=== PATIENT | male | born 1985 | race Caucasian/White ===

== ENCOUNTER 2017-02-16 15:06 | Emergency (ER) | payer OTHER, MEDICARE ==
[~2017-02-16] VITALS: Ht 177.8 cm; Wt 104.3 kg
[~2017-02-16 15:06] MED LIST: BENTYL20 MG PO; DIVALPROEX SOD250 M1 PO; PEPCID20 MG PO
[2017-02-16 15:31] LABS: ABSOLUTE BASOPHIL COUNT 0 /CUMM (0.0-0.2); ABSOLUTE EOSINOPHIL COUNT 0.3 /CUMM (0.0-0.7); ABSOLUTE GRANULOCYTE CT 8.4 /CUMM (1.4-6.5); ABSOLUTE LYMPH COUNT 1.6 /CUMM (1.2-3.4); BASOPHIL % 0.3 % (0.0-2.0); EOSINOPHIL % 2.3 % (0-5); HEMATOCRIT 47.8 % (42-52); MEAN CORPUSCULAR HGB 30.3 PG (27.0-31.0); MEAN CORPUSCULAR HGB CONC 33.5 G/DL (33.0-37.0); MEAN CORPUSCULAR VOLUME 90.3 FL (80.0-94.0); MEAN PLATELET VOLUME 8.6 FL (7.4-10.4); PLATELET COUNT 319 /CUMM (130-400); RBC DISTRIBUTION WIDTH 13.2 % (11.5-14.5); WHITE BLOOD CELL COUNT 11.3 /CUMM (4.8-10.8)
--- NOTE | 2017-02-16 16:13 | ED GI/GU/ABDOMINAL COMPLAINT ---
History of Present Illness General Chief Complaint: Abdominal Pain/Flank Pain Stated Complaint: SENT BY PMD FOR LFT SIDED FLANK PAIN Source: patient Exam Limitations: no limitations Vital Signs & Intake/Output Vital Signs & Intake/Output Vital Signs Date Time Temp Pulse Resp B/P B/P Pulse O2 O2 Flow FiO2 Mean Ox Delivery Rate 02/16 1806 87 20 116/66 99 02/16 1509 97.9 83 16 123/83 98 Room Air Allergies Coded Allergies: levetiracetam (From KEPPRA) (RASH 02/16/17) phenytoin (From DILANTIN) (RASH 02/16/17) Reconcile Medications Ketorolac Tromethamine 10 MG TABLET 1 TAB PO TID PRN PAIN RECEIVED IM IN ER Lamotrigine (Lamotrigine ER) 300 MG TAB.ER.24 1 TAB PO BID SEIZURES (Reported ) Triage Note: PT WITH LEFT SIDED FLANK PAIN THAT STARTED 2 DAYS AGO. PT DENIES BLOOD IN HIS URINE STATES "I DIDN'T NOTICE". PT WITH NO HX OF KIDNEY STONES. Triage Nurses Notes Reviewed? yes Onset: Abrupt Duration: getting worse, intermittent Timing: recent history Quality/Severity: sharpness, severe, stabbing, throbbing Severity Numbers: 7 HPI: Patient is a 31-year-old male who presents to emergency room with concerns of a 3 day history of initially beginning of left back and flank pain with radiation to left groin however in the past 24 hours the symptoms have been persistent. Patient has tried aspirin without relief of symptoms. Last bowel movement was within the last 24 hours no blood no melena noted. Denies any fevers chills nausea vomiting dysuria hematuria. Patient is able tolerate by mouth. (LOBO HAMILTON) Past History Travel History Traveled to [place] past 21 day No Medical History Any Pertinent Medical History? see below for history Neurological: seizure Surgical History Surgical History: non-contributory Psychosocial History What is your primary language Lao Tobacco Use: Current Not Daily Daily Tobacco Use Amount/Type: =< 4 Cigarettes daily ETOH Use: denies use Illicit Drug Use: denies illicit drug use Family History Hx Contributory? No (LOBO HAMILTON) Review of Systems Review of Systems Constitutional: Reports: no symptoms. EENTM: Reports: no symptoms. Respiratory: Reports: no symptoms. Cardiovascular: Reports: no symptoms. GI: Reports: see HPI, abdominal pain. Genitourinary: Reports: see HPI. Musculoskeletal: Reports: see HPI, back pain. Skin: Reports: no symptoms. Neurological/Psychological: Reports: no symptoms. Hematologic/Endocrine: Reports: no symptoms. Immunologic/Allergic: Reports: no symptoms. All Other Systems: Reviewed and Negative (LOBO HAMILTON) Physical Exam Physical Exam General Appearance: mild distress Gastrointestinal: normal bowel sounds, soft Comments: HEENT: Normal EENT exam. Neck: Supple, no lymphadenopathy, normal range of motion without pain or tenderness Back: Normal inspection left lateral mild point tenderness noted Full active range of motion noted with mild pain to side bending Cardiovascular: Regular rate and rhythms no murmurs rubs or gallops, normal JVP Respiratory: Chest nontender. No respiratory distress.breath sounds clear to auscultation bilaterally Abdomen: Soft, mild left flank point tenderness noted, no right lower quadrant pain no peritoneal signs nondistended, no appreciable organomegaly. Normal bowel sounds. No ascites Extremity: No edema, no calf tenderness to palpation, normal and equal pulses. Neuro: Alert oriented x3, motor sensory normal, Skin: No appreciable rash on exposed skin, skin is warm and dry. Psych: Mood and affect is normal, memory and judgment is normal. Core Measures ACS in differential dx? No Severe Sepsis Present: No Septic Shock Present: No (LOBO HAMILTON) Progress Differential Diagnosis: AAA, AMI, appendicitis, biliary colic, bowel obstruction , colon cancer, cholecystitis, diverticulitis, epididymitis, esophageal varices, gastritis, hepatitis, hernia, hemorrhoids, ischemic bowel, inflamm bowel dis, orchitis, pancreatitis, prostatitis, peptic ulcer, PUD/GERD, perforated viscous, pyelonephritis, SBO, testicular torsion, ureterolithiasis, urinary retention, urethritis, UTI/pyelo Plan of Care: Orders Procedure Date/time Status COMPREHENSIVE METABOLIC PANEL 02/16 1512 Complete CBC WITHOUT DIFFERENTIAL 02/16 1512 Complete URINALYSIS 02/16 1510 Complete Laboratory Tests 02/16/17 1520: Anion Gap 17 H, Estimated GFR > 60, BUN/Creatinine Ratio 13.1, Glucose 112 H, Calcium 9.7, Total Bilirubin 0.8, AST 27, ALT 61, Alkaline Phosphatase 73, Total Protein 7.9, Albumin 5.1 H, Globulin 2.8, Albumin/Globulin Ratio 1.8, CBC w Diff NO MAN DIFF REQ, RBC 5.30, MCV 90.3, MCH 30.3, RDW 13.2, MPV 8.6, Gran % 74.0, Lymphocytes % 14.2 L, Monocytes % 9.2, Eosinophils % 2.3, Basophils % 0.3 , Absolute Granulocytes 8.4 H, Absolute Lymphocytes 1.6, Absolute Monocytes 1.0 H, Absolute Eosinophils 0.3, Absolute Basophils 0, PUBS MCHC 33.5, Urine Color YEL, Urine Clarity CLEAR, Urine pH 6.0, Ur Specific [place] 1.025, Urine Protein TRACE H, Urine Ketones NEG, Urine Nitrite NEG, Urine Bilirubin NEG, Urine Urobilinogen 0.2, Ur Leukocyte Esterase NEG, Ur Microscopic SEDIMENT EXAMINED, Urine RBC RARE, Urine WBC RARE, Ur Epithelial Cells RARE, Urine Bacteria RARE H , Urine Hemoglobin TRACE-INTACT H, Urine Glucose NEG CT scan was unremarkable blood work unremarkable. Patient is no apparent distress and had relief of pain with ketorolac. At this time there is no clear etiology of patient's symptoms. Patient was strongly advised to follow up with primary care doctor and to return to emergency room if symptoms worsen and he will comply. (KAMILAH WARD,LOBO) Diagnostic Imaging: Viewed by Me: CT Scan. Radiology Impression: no acute abnormality Initial ED EKG: none Comments: PATIENT: ROMEO LIZARRAGA PRESENT AGE: 31 PATIENT ACCOUNT NO: [id number] : 83 LOCATION: [facility] ORDERING PHYSICIAN: LOBO WARD SERVICE DATE: 02/16/17 EXAM TYPE: CAT - CT ABD & PELVIS W/O IV CONTRAS EXAMINATION: CT ABDOMEN AND PELVIS WITHOUT CONTRAST CLINICAL INFORMATION: Left flank pain and back pain with radiation to groin. COMPARISON: CT June 2014. TECHNIQUE: Multidetector volumetric imaging was performed from the superior aspect of the liver through the pubic symphysis. Sagittal and coronal reformatted images were obtained on the technologist's workstation. DLP: 458 mGy-cm FINDINGS: LUNG BASES: The visualized lung bases are unremarkable. LIVER, GALLBLADDER, AND BILIARY TREE: The liver is normal in size, shape, and attenuation. No focal hepatic lesion or biliary ductal dilatation is present. The gallbladder is unremarkable with no evidence of radiopaque gallstones, gallbladder wall thickening, or obvious pericholecystic inflammatory changes. PANCREAS: Unremarkable. SPLEEN: Unremarkable. ADRENAL GLANDS: Unremarkable. KIDNEYS AND URETERS: The kidneys are normal in size, shape, and attenuation. No hydronephrosis, hydroureter, or calculi seen. No perinephric stranding. BLADDER: Unremarkable. GASTROINTESTINAL TRACT: Stomach normal. Small bowel normal. Appendix normal. Scattered diverticula in the distal colon but no diverticulitis. ABDOMINAL WALL: No significant hernia is appreciated. LYMPH NODES: Normal. VASCULAR: An IVC filter is again noted with the cephalad end at the level of the left renal vein. No change. PELVIC VISCERA: Unremarkable. 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 IMPRESSION: No acute abnormality. IVC filter again noted unchanged. No urinary tract calculi. DICTATED BY: MARIE TAN MD DATE/TIME DICTATED:02/16/171714 CAGE CASHIER:RAF (LOBO HAMILTON) Departure Departure Disposition: HOME OR SELF CARE Condition: Stable Clinical Impression Primary Impression: Back pain Secondary Impressions: Abdominal pain Referrals: ROBINSON LOO MD (PCP/Family) Additional Instructions: As discussed begin the prescription of ketorolac for pain and inflammation. Prescription is waiting a [facility] pharmacy. If no better on Sunday follow-up with primary care doctor. If symptoms worsen or if YOU develop a new concerning symptom return to emergency room immediately Departure Forms: Customer Survey General Discharge Information Prescriptions: Current Visit Scripts Ketorolac Tromethamine 1 TAB PO TID PRN PAIN #15 TAB RECEIVED IM IN ER (LOBO HAMILTON) PA/ENGLISH PROFESSOR Co-Sign Statement Statement: ED Attending supervision documentation- [] I saw and evaluated the patient. I have also reviewed all the pertinent lab results and diagnostic results. I agree with the findings and the plan of care as documented in the PA's/ENGLISH PROFESSOR's documentation. [X] I have reviewed the ED Record and agree with the PA's/ENGLISH PROFESSOR's documentation. [] Additions or exceptions (if any) to the PAs/ENGLISH PROFESSOR's note and plan are summarized below: [] (TERRY CLEMENTS DO
[2017-02-16] MEDS ORDERED: LAMOTRIGINE ER300 MG PO (16:18)
--- NOTE | 2017-02-16 17:28 | CT SCAN REPORT ---
EXAMINATION: CT ABDOMEN AND PELVIS WITHOUT CONTRAST CLINICAL INFORMATION: Left flank pain and back pain with radiation to groin. COMPARISON: CT June 2014. TECHNIQUE: Multidetector volumetric imaging was performed from the superior aspect of the liver through the pubic symphysis. Sagittal and coronal reformatted images were obtained on the technologist's workstation. DLP: 458 mGy-cm FINDINGS: LUNG BASES: The visualized lung bases are unremarkable. LIVER, GALLBLADDER, AND BILIARY TREE: The liver is normal in size, shape, and attenuation. No focal hepatic lesion or biliary ductal dilatation is present. The gallbladder is unremarkable with no evidence of radiopaque gallstones, gallbladder wall thickening, or obvious pericholecystic inflammatory changes. PANCREAS: Unremarkable. SPLEEN: Unremarkable. ADRENAL GLANDS: Unremarkable. KIDNEYS AND URETERS: The kidneys are normal in size, shape, and attenuation. No hydronephrosis, hydroureter, or calculi seen. No perinephric stranding. BLADDER: Unremarkable. GASTROINTESTINAL TRACT: Stomach normal. Small bowel normal. Appendix normal. Scattered diverticula in the distal colon but no diverticulitis. ABDOMINAL WALL: No significant hernia is appreciated. LYMPH NODES: Normal. VASCULAR: An IVC filter is again noted with the cephalad end at the level of the left renal vein. No change. PELVIC VISCERA: Unremarkable. 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 IMPRESSION: No acute abnormality. IVC filter again noted unchanged. No urinary tract calculi.
[2017-02-16] MEDS ORDERED: KETOROLAC TROME10 M1 PO (18:01)
[2017-02-16 18:06] VITALS: BP 116/66
== END 2017-02-16 18:06 ==
LOC: ERH 15:06
PROVIDERS: Emergency Medicine
DX: R10.9 Unspecified abdominal pain (principal); M54.9 Dorsalgia, unspecified
CPT/HCPCS: 74176; 81001; 96372; J1885

== ENCOUNTER 2018-01-08 14:20 | Inpatient (IN) | payer OTHER, MEDICARE ==
[~2018-01-08] VITALS: Ht 177.8 cm; Wt 92.5 kg
[~2018-01-08 14:20] MED LIST changes: +KETOROLAC TROME10 M1 PO; +LAMOTRIGINE ER300 MG PO
[2018-01-08] MEDS ORDERED: LEVETIRACETAM750 M1 PO (14:59)
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
[2018-01-08 15:51] LABS: ABSOLUTE BASOPHIL COUNT 0.1 /CUMM (0.0-0.2); ABSOLUTE EOSINOPHIL COUNT 1.2 /CUMM (0.0-0.7); ABSOLUTE GRANULOCYTE CT 13.2 /CUMM (1.4-6.5); ABSOLUTE MONOCYTE COUNT 1.6 /CUMM (0.10-0.60); BASOPHIL % 0.5 % (0.0-2.0); GRANULOCYTE % 65.5 % (42.2-75.2); MEAN CORPUSCULAR HGB 30.4 PG (27.0-31.0); MEAN CORPUSCULAR VOLUME 92.1 FL (80.0-94.0); MEAN PLATELET VOLUME 9.3 FL (7.4-10.4); PLATELET COUNT 343 /CUMM (130-400); RBC DISTRIBUTION WIDTH 12.5 % (11.5-14.5); RED BLOOD CELL CT 5.53 /CUMM (4.70-6.10); WHITE BLOOD CELL COUNT 20.1 /CUMM (4.8-10.8)
--- NOTE | 2018-01-08 17:08 | RADIOLOGY REPORT ---
EXAMINATION: XR PORTABLE CHEST CLINICAL INFORMATION: Cough, dyspnea, seizure COMPARISON: 11/09/2017 TECHNIQUE: Portable frontal view of the chest was obtained. FINDINGS: The lungs are clear with no focal consolidation. No evidence of pneumothorax, pulmonary edema, or pleural effusions. The cardiomediastinal silhouette is unremarkable. No acute osseous findings. IMPRESSION: No acute cardiopulmonary findings.
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
[2018-01-08 23:04] VITALS: BP 128/72
[2018-01-08 23:10] VITALS: BP 107/65
[2018-01-09] VITALS: BP 130/70
[2018-01-09 06:18] LABS: ABSOLUTE BASOPHIL COUNT 0 /CUMM (0.0-0.2); ABSOLUTE EOSINOPHIL COUNT 0 /CUMM (0.0-0.7); ABSOLUTE GRANULOCYTE CT 10.6 /CUMM (1.4-6.5); ABSOLUTE LYMPH COUNT 1.2 /CUMM (1.2-3.4); ABSOLUTE MONOCYTE COUNT 0.2 /CUMM (0.10-0.60); BASOPHIL % 0.2 % (0.0-2.0); EOSINOPHIL % 0 % (0-5); GRANULOCYTE % 87.6 % (42.2-75.2); MEAN CORPUSCULAR HGB 30.9 PG (27.0-31.0); MEAN CORPUSCULAR HGB CONC 33.8 G/DL (33.0-37.0); MEAN CORPUSCULAR VOLUME 91.5 FL (80.0-94.0); MEAN PLATELET VOLUME 8.8 FL (7.4-10.4); PLATELET COUNT 316 /CUMM (130-400); RBC DISTRIBUTION WIDTH 12.7 % (11.5-14.5); RED BLOOD CELL CT 4.97 /CUMM (4.70-6.10); WHITE BLOOD CELL COUNT 12.1 /CUMM (4.8-10.8)
[2018-01-09 06:33] LABS: HEMATOCRIT 45.4 % (42-52)
[2018-01-09 07:43] VITALS: BP 122/62
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
[2018-01-09 16:00] VITALS: BP 102/49
[2018-01-10] VITALS: BP 110/60
[2018-01-10 05:12] LABS: ABSOLUTE BASOPHIL COUNT 0 /CUMM (0.0-0.2); ABSOLUTE EOSINOPHIL COUNT 0 /CUMM (0.0-0.7); ABSOLUTE GRANULOCYTE CT 8.4 /CUMM (1.4-6.5); ABSOLUTE LYMPH COUNT 1.9 /CUMM (1.2-3.4); BASOPHIL % 0.4 % (0.0-2.0); EOSINOPHIL % 0.2 % (0-5); GRANULOCYTE % 74.2 % (42.2-75.2); HEMATOCRIT 43.7 % (42-52); MEAN CORPUSCULAR HGB 30.8 PG (27.0-31.0); MEAN CORPUSCULAR HGB CONC 33.9 G/DL (33.0-37.0); MEAN CORPUSCULAR VOLUME 90.9 FL (80.0-94.0); MEAN PLATELET VOLUME 8.6 FL (7.4-10.4); PLATELET COUNT 307 /CUMM (130-400); RBC DISTRIBUTION WIDTH 12.9 % (11.5-14.5); RED BLOOD CELL CT 4.81 /CUMM (4.70-6.10); WHITE BLOOD CELL COUNT 11.4 /CUMM (4.8-10.8)
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
[2018-01-10 08:00] VITALS: BP 120/70
[2018-01-10] MEDS ORDERED: VIMPAT100 M1 PO ×3 (10:31→11:13)
[2018-01-10] MEDS ORDERED: FLOVENT HFA12 G1 INH ×2 (10:34→11:09)
[2018-01-10] MEDS ORDERED: SPIRIVA18 MCG INH (10:34)
--- NOTE | 2018-01-10 10:46 | Patient Discharge Instructions ---
Discharge Instructions General Discharge Information You were seen/treated for: - Dyspnea - Seizures Watch for these problems: - Chest pain, Shortness of breath - Recurrent seizures - Loss of consciousness Special Instructions: -Please see your primary care provider within a week of discharge. -Please see your neurologist within a week of discharge. Please discuss about the new medication that was added. If you have worsening symptoms such as dizziness which could be due to the medication; call your neurologist. -Please take your medications as prescribed. Acute Coronary Syndrome Inclusion Criteria At DC or during hospital stay patient has or had the following: ACS DIAGNOSIS No Discharge Core Measures Meds if any: Prescribed or Continued at Discharge Meds if any: NOT Prescribed or Continued at Discharge Congestive Heart Failure Inclusion Criteria At DC or during hospital stay patient has or had the following: CHF DIAGNOSIS No Discharge Core Measures Meds if any: Prescribed or Continued at Discharge Meds if any: NOT Prescribed or Continued at Discharge Cerebrovascular accident Inclusion Criteria At DC or during hospital stay patient has or had the following: CVA/TIA Diagnosis No Discharge Core Measures Meds if any: Prescribed or Continued at Discharge Meds if any: NOT Prescribed or Continued at Discharge Venous thromboembolism Inclusion Criteria VTE Diagnosis No VTE Type NONE VTE Confirmed by (Test) NONE Discharge Core Measures - Per Current guidelines, there needs to be overlap - treatment for the first 5 days of Warfarin therapy. - If discharged on Warfarin prior to 5 days of - overlap therapy, the patient will need to be - assessed for post discharge needs including - *Post discharge parental anticoagulation - *Warfarin and/or parental anticoagulation education - *Follow up date to check INR post discharge At least 5 days overlap therapy as Inpatient No Meds if any: Prescribed or Continued at Discharge Note: Overlap Therapy is Warfarin and Anticoagulant Meds if any: NOT Prescribed or Continued at Discharge
[2018-01-10] MEDS ORDERED: VENTOLIN HFA18 GM INH ×2 (10:49→11:09)
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
== END 2018-01-10 13:25 | DRG 101 ==
LOC: ERH 14:20 → ERHI 19:28 → CRI 19:28 → ENRESERV 21:32 → ENTRNSPT 22:21 → EDTRNSPT 22:29 → EDTRNSPTSTS 22:29 → 2NB 22:33 → CMPTRNSPT 22:45 → CRI 01-09 00:10 → ENPENDDIS 01-10 11:49 → CRI 01-10 13:25
PROVIDERS: Internal Medicine; Internal Medicine Endocrinology, Diabetes & Metabolism; Physician Assistant Medical
DX: G40.909 Epilepsy, unspecified, not intractable, without status epilepticus (principal); F12.90 Cannabis use, unspecified, uncomplicated; Z79.51 Long term (current) use of inhaled steroids; Z87.820 Personal history of traumatic brain injury; Z95.9 Presence of cardiac and vascular implant and graft, unspecified; Z88.8 Allergy status to other drugs, medicaments and biological substances; F14.90 Cocaine use, unspecified, uncomplicated; J45.909 Unspecified asthma, uncomplicated
CPT/HCPCS: 2NSBP; CCU; 36415; 36592; 71045; 80307; 81001; 82436; 87804; 87804-59; 93005; 93010; 94799; 96374; 96375; 99291; C9254; J0456; J0696; J1650; J1953; J2930; J3490; J7060